=== PATIENT | male | born 1985 | race Caucasian/White ===

== ENCOUNTER → 2021-02-01 | Outpatient (CLI) | payer SELFPAY ==
[2021-02-01 11:02] LABS: HEMATOCRIT 49.4 % (42.0-52.0); HEMOGLOBIN 17.3 g/dL (13.5-18.0)
== END ==
LOC: LAB 10:27
DX: R71.8 Other abnormality of red blood cells (principal)

== ENCOUNTER → 2021-02-05 | Outpatient (CLI) | payer SELFPAY ==
[2021-02-05 13:27] LABS: HEMATOCRIT 41.9 % (42.0-52.0); HEMOGLOBIN 14.5 g/dL (13.5-18.0)
== END ==
LOC: LAB 13:08
DX: Z01.89 Encounter for other specified special examinations (principal)

== ENCOUNTER → 2021-02-08 | Outpatient (CLI) | payer SELFPAY | LOC: RAD 19:45 | DX: R51.9 Headache, unspecified (principal); Z79.890 Hormone replacement therapy; Z80.8 Family history of malignant neoplasm of other organs or systems | CPT/HCPCS: A9585 ==

== ENCOUNTER → 2024-03-09 | Outpatient (CLI) | payer OTHER ==
[2024-03-09 12:19] LABS: HEMATOCRIT 48.2 % (42.0-52.0); HEMOGLOBIN 16.2 g/dL (13.5-18.0)
== END ==
LOC: LAB 12:09
PROVIDERS: Emergency Medicine
DX: D58.2 Other hemoglobinopathies (principal)

== ENCOUNTER → 2024-04-29 | Outpatient (CLI) | payer OTHER ==
[2024-04-29 11:51] LABS: HEMATOCRIT 45.7 % (42.0-52.0); HEMOGLOBIN 14.9 g/dL (13.5-18.0)
== END ==
LOC: LAB 11:43
PROVIDERS: Emergency Medicine
DX: E83.110 Hereditary hemochromatosis (principal); D58.2 Other hemoglobinopathies